=== PATIENT | female | born 1985 | race Caucasian/White ===

== ENCOUNTER 2019-08-03 10:11 | Emergency (ER) | payer OTHER, SELFPAY ==
[2019-08-03] VITALS (24 sets, daily range): BP systolic 112–140; BP diastolic 72–96; PULSE 70; RESP 18; TEMP 36.8; O2SAT 85–100
--- NOTE | 2019-08-03 11:57 | ED.BACK ---
HPI - Back Pain/Injury General Chief Complaint: Back Pain/Injury Stated Complaint: back/neck pain Time Seen by Provider: 08/03/19 11:07 Source: patient Mode of arrival: ambulatory Limitations: no limitations History of Present Illness HPI Narrative: This is a 34 year old female that presents to the ER for low back pain that started with morning. Reports no known injury or trauma. Reports the pain goes from the left side of her neck all the way down her back. Reports she took Ibuprofen with little relief. Denies fever, abdominal pain, dysuria, hematuria, weakness, numbness, saddle anesthesia, or bowel/bladder incontinence. Related Data Allergies Allergy/AdvReac Type Severity Reaction Status Date / Time amoxicillin Allergy Unknown Verified 11/13/16 23:47 codeine Allergy Unknown Verified 11/13/16 23:47 ibuprofen Allergy Unknown Verified 11/13/16 23:47 ketorolac Allergy Unknown Verified 11/13/16 23:47 latex Allergy Unknown Verified 11/13/16 23:47 naproxen Allergy Unknown Verified 11/13/16 23:47 NSAIDS (Non-Steroidal Allergy Unknown Verified 11/13/16 23:47 Anti-Inflamma tramadol Allergy Unknown Verified 11/13/16 23:47 Review of Systems Review of Systems: Narrative: CONSTITUTIONAL: Denies fever GASTROINTESTINAL: Denies abdominal pain, nausea, vomiting GENITOURINARY: Denies dysuria or hematuria. SKIN: Denies rash MUSCULOSKELETAL: Reports back pain, joint pain, and myalgia. NEUROLOGIC: Denies numbness, or weakness. PSYCHIATRIC: Reports depression. All systems reviewed & are unremarkable except as noted in HPI and below PMFSH Past Medical History Medical History (Updated 08/03/19 @ 13:52 by Sudha Nobles PA-C) History of depression Social History Social History (Updated 08/03/19 @ 11:58 by Sudha Nobles PA-C) Smoking status: Current every day smoker Substance use: never Gender identity (if verbalized by the patient): Female Exam Narrative: Exam Narrative: GENERAL: Well-appearing, well-nourished, and in no acute distress. HEAD: Normocephalic, atraumatic. EYES: EOMI. NECK: Supple. No adenopathy or masses. No midline spinal tenderness CHEST: Clear to auscultation. No respiratory distress. No wheezes rales or rhonchi HEART: Regular rate and rhythm. No murmur heard. Normal peripheral pulses. BACK: No midline spinal tenderness. Tender palpation of the left sided paraspinal musculature EXTREMITIES: Normal range of motion. No edema. Strength equal in bilateral upper and lower extremities SKIN: Warm, dry, no rash. NEURO: No focal deficits. Alert and oriented x3. Normal gait PSYCH: Normal mood and affect Course Vital Signs Vital signs: Vital Signs Temperature 98.3 F 08/03/19 10:20 Pulse Rate 70 08/03/19 10:20 Respiratory Rate 18 08/03/19 10:20 Blood Pressure 136/96 H 08/03/19 10:20 Pulse Oximetry 100 08/03/19 10:20 Temperature 98.3 F 08/03/19 10:20 Pulse Rate 70 08/03/19 10:20 Respiratory Rate 18 08/03/19 10:20 Blood Pressure 126/72 08/03/19 13:31 Pulse Oximetry 97 08/03/19 13:31 MDM - Back Pain/Injury MDM Narrative Medical decision making narrative: Patient presents the emergency department for left-sided neck and back pain since this morning. No known injury or trauma. Patient's vitals are normal. She is afebrile and nontoxic-appearing. She is neurologically intact. Patient reports improvement with Tylenol and muscle relaxer. She was instructed to rest, use ice/heat and take [id number] medication as needed. She will be given muscle relaxer as needed for pain as well. She is to follow-up with primary care doctor. She is given warnings to return to the ER Lab Data Attestation: I reviewed the patient's lab results. Labs: UCG Bedside Result Negative Reference Range: Negative Critical Care Time Critical Care Time Critical Care Time: No Discharge Plan Discharge Clinical Impression: Acute neck pain Back pain Qu
[2019-08-03] MEDS: ACETAMINOPHEN 500 MG TABLET 1000 MG PO (12:07)
[2019-08-03] MEDS: DIAZEPAM 5 MG TABLET PO (12:07)
== END 2019-08-03 14:00 | disposition home or self-care (01) ==
PROVIDERS: Emergency Provider Emergency Medicine; PCP Family Medicine
DX: M54.5 Low back pain (principal); M54.2 Cervicalgia; F17.200 Nicotine dependence, unspecified, uncomplicated
CPT/HCPCS: 81025; 99283; A9270

== ENCOUNTER 2020-09-06 04:23 | Emergency (ER) | payer SELFPAY ==
--- NOTE | ~2020-09-06 | XR_ITS ---
XR chest 2V DATE: 09/06/2020 05:06 INDICATION: Cough, fever TECHNIQUE: PA and lateral views COMPARISON: None FINDINGS: There are bilateral central lung infiltrates in batwing distribution which may be consisten t with pulmonary edema versus bilateral pneumonia. Heart size is normal. No pleural effusion or pulmonary vascular congestion or pneumothorax is evident . No hilar or mediastinal enlargement. Surgical clips, right upper quadrant, consistent with cholecystectomy IMPRESSION: Bilateral central pulmonary infiltrates; consider pulmonary edema versus bilateral pneumo yony Status post cholecystectomy Reviewed, dictated and finalized at location A. IMPRESSION: Bilateral central pulmonary infiltrates; consider pulmonary edema v ersus bilateral pneumonia Status post cholecystectomy
[2020-09-06 04:36] VITALS: BP 129/82; PULSE 100; RESP 18; TEMP 37.3; O2SAT 95
--- NOTE | 2020-09-06 05:29 | ED.URI ---
HPI - URI/Sore Throat General Chief Complaint: Upper Respiratory Infection Stated Complaint: headache, sore throat Source: patient Mode of arrival: ambulatory Limitations: no limitations History of Present Illness HPI Narrative: Patient comes in with cough, subjective fever at home, sore throat, and ear pain bilaterally. This has gone on for two days. Sore throat and ear pain has been moderately severe, and sharp for the last two days. No chills, no objective fever by using thermometer. MD elicited complaint: fever, cough and sore throat Onset (ago): day(s) Consistency: constant Severity: moderate Able to tolerate fluids by mouth: Yes Exacerbating factors: swallowing Relieving factors: nothing Context: recent travel Associated symptoms: denies other symptoms Treatments prior to arrival: acetaminophen Related Data Home Medications Medication Instructions Recorded Confirmed alprazolam 1 mg PO BID 09/06/20 09/06/20 amitriptyline 10 mg PO HS 09/06/20 09/06/20 Allergies Allergy/AdvReac Type Severity Reaction Status Date / Time codeine Allergy Unknown Unknown Verified 09/06/20 06:33 ibuprofen Allergy Unknown Unknown Verified 09/06/20 06:33 ketorolac Allergy Unknown Unknown Verified 09/06/20 06:33 latex Allergy Unknown Unknown Verified 09/06/20 06:33 naproxen Allergy Unknown Unknown Verified 09/06/20 06:33 NSAIDS (Non-Steroidal Allergy Unknown Unknown Verified 09/06/20 06:33 Anti-Inflamma tramadol Allergy Unknown Unknown Verified 09/06/20 06:33 Review of Systems Constitutional: Constitutional: Reports fatigue Eyes: Eyes: Reports no additional eye complaints ENT: Reports system reviewed and no additional complaints, except as documented Cardiovascular: Cardiovascular: Reports no additional cardiovascular complaints Respiratory: Respiratory: Reports no additional respiratory complaints Gastrointestinal: Gastrointestinal: Reports no additional gastrointestinal complaints Genitourinary: Genitourinary: Reports no additional female genitourinary complaints Musculoskeletal: Musculoskeletal: Reports no additional musculoskeletal complaints Integumentary/Breasts: Skin/Breast: Reports system reviewed and no additional complaints, except as docu Neurologic: Reports system reviewed and no additional complaints, except as documented Psychiatric: Psychiatric: Reports no additional psychiatric complaints Endocrine: Endocrine: Reports no additional endocrine complaints Hematologic/Lymphatic: Hematologic/Lymphatic: Reports no additional hematologic/lymphatic complaints Allergic/Immunologic: Allergic/Immunologic: Reports no additional allergic/immunologic complaints [facility] Past Medical History Medical History (Updated 09/06/20 @ 06:29 by Yordy Ortiz MD) Colitis History of depression Migraine Surgical History Surgical History (Updated 09/06/20 @ 05:49 by Yordy Ortiz MD) History of cholecystectomy Hx of knee surgery Family History Family History (Updated 09/06/20 @ 05:50 by Yordy Ortiz MD) Mother Hypertension Heart disease Social History Social History (Updated 09/06/20 @ 05:51 by Yordy Ortiz MD) Smoking packs per day: 0.5 Smoking cigarettes per day: 10.0 Smoking status: Current every day smoker Tobacco type: cigarettes Alcohol intake: never Substance use: never Living arrangements: with family Gender identity (if verbalized by the patient): Female Exam Const: General: no acute distress and alert Orientation/consciousness: patient oriented x3 HENMT: Head: normal to inspection Ears: external ears normal General nose exam: Normal external nose present Mouth: Yes Abnormal oral and palatal mucosa present Other: erythema of throat, no exudates seen I cannot see either drum, both ears occluded with wax Eyes: Conjunctivae: conjunctivae normal Neck: Neck: normal visual inspection Chest: Chest palpation & inspection: normal inspection of the chest Resp:
[2020-09-06 05:46] LABS: Add Urine Microscopic? YES; Appearance Urine Clear (Clear); Bilirubin Urine Negative (Negative); Blood Urine Trace-Intact (Negative); Color Urine Yellow (Yellow); Glucose Urine UA Negative (Negative); Ketones Urine Negative (Negative); Leukocyte Esterase Ur Negative LEU/UL (Negative); Nitrate Urine Negative (Negative); Protein Urine Negative (Negative); Specific Grav Ur >= 1.030 (1.010-1.020); Urobilinogen Urine 0.2 mg/dL (0.2-1.0)
[2020-09-06 05:47] LABS: Bacteria Urine Trace /hpf; RBC Urine 0-2 /hpf (0-2); Squamous Epithelial Cell Urine Few /hpf (Few); WBC Urine 0-3 /hpf (0-3)
[2020-09-06 06:10] LABS: Basophils Absolute Auto 0.03 K/mm3 (0.00-0.10); Basophils Percent Auto 0.2 % (0.0-1.0); Eosinophils Absolute Auto 0.29 K/mm3 (0.02-0.50); Eosinophils Percent Auto 2.3 % (1.0-6.0); Hematocrit 40.2 % (35.0-49.0); Hemoglobin 13.7 g/dL (12.0-15.0); Immature Granulocyte Absolute 0.07 K/mm3 (0.00-0.00); Immature Granulocyte Percent A 0.5 % (0.0-0.0); Lymphocytes Percent Auto 14.1 % (18.0-42.0); Mean Corpuscular HGB Conc 34.1 g/dL (32.0-36.0); Mean Corpuscular Hemoglobin 31.3 pg (27.0-31.0); Mean Corpuscular Volume 91.8 fL (78.0-102.0); Mean Platelet Volume 9.6 fl (9.2-11.8); Monocytes Absolute Auto 0.71 K/mm3 (0.10-0.90); Monocytes Percent Auto 5.5 % (2.0-11.0); Neutrophils Absolute Auto 9.9 K/mm3 (1.7-7.2); Neutrophils Percent Auto 77.4 % (50.0-70.0); Platelet Count Result 343 K/mm3 (150-420); Red Blood Count 4.38 M/mm3 (4.20-5.40); Red Cell Distribution Width 12.4 % (11.6-14.4); White Blood Count 12.8 K/mm3 (4.8-10.8)
[2020-09-06 06:23] LABS: Alanine Aminotransferase 24 U/L (14-59); Albumin Level 3.6 g/dL (3.4-5.0); Alkaline Phosphatase 97 U/L (46-116); Anion Gap 12 mmol/L (8-16); Aspartate Amino Transferase 11 U/L (15-37); Bilirubin,Total 0.6 mg/dL (0.00-1.00); Blood Urea Nitrogen 9 mg/dL (7-18); Calcium 8.8 mg/dL (8.5-10.1); Carbon Dioxide 24 mmol/L (21-32); Chloride 102 mmol/L (98-108); Estimated CRCL calculation 83 ml/min; Estimated Glomerular Filt Rate > 60; Glucose 105 mg/dL (70-99); Osmolality Calculated 284 mOsm/kg (285-295); Potassium 3.5 mmol/L (3.5-5.1); Sodium 138 mmol/L (136-145); Total Protein 6.8 g/dL (6.4-8.2)
[2020-09-06] MEDS: HYDROcodone/acetaminophen (*CRX) 5-325 MG TABLET 1 TAB PO (06:28)
[2020-09-06 06:30] VITALS: BP 126/78; PULSE 100; RESP 20; TEMP 37.2; O2SAT 97
== END 2020-09-06 06:43 | disposition home or self-care (01) ==
PROVIDERS: Emergency Provider Emergency Medicine; PCP Family Medicine
DX: B34.9 Viral infection, unspecified (principal)
CPT/HCPCS: 36415; 71046; 80053; 81001; 85025; 87040; 87081; 87880; 99283; A9270

== ENCOUNTER 2021-09-20 17:25 | Emergency (ER) | payer OTHER, SELFPAY ==
[2021-09-20 17:30] VITALS: BP 153/87; PULSE 88; RESP 20; TEMP 37; O2SAT 96
--- NOTE | 2021-09-20 17:53 | ED.ALLEREA ---
HPI - Allergic Reaction General Chief complaint: Allergic Reaction Stated complaint: food allergy Time Seen by Provider: 09/20/21 17:29 Source: patient and RN notes reviewed Mode of arrival: ambulatory Limitations: no limitations History of Present Illness complaint: allergic reaction Onset (ago): day(s) (3) Exposure: unknown Symptoms: rash and itching Severity: mild Treatment prior to arrival: benadryl Related Data Home Medications Medication Instructions Recorded Confirmed alprazolam 1 mg tablet 1 mg PO BID 09/06/20 09/20/21 Allergies Allergy/AdvReac Type Severity Reaction Status Date / Time codeine Allergy Unknown Unknown Verified 09/06/20 06:33 ibuprofen Allergy Unknown Unknown Verified 09/06/20 06:33 ketorolac Allergy Unknown Unknown Verified 09/06/20 06:33 latex Allergy Unknown Unknown Verified 09/06/20 06:33 naproxen Allergy Unknown Unknown Verified 09/06/20 06:33 NSAIDS (Non-Steroidal Allergy Unknown Unknown Verified 09/06/20 06:33 Anti-Inflamma tramadol Allergy Unknown Unknown Verified 09/06/20 06:33 Review of Systems Review of Systems: All systems reviewed & are unremarkable except as noted in HPI and below Constitutional: Constitutional: Reports no additional constitutional complaints Eyes: Eyes: Reports no additional eye complaints ENT: Reports system reviewed and no additional complaints, except as documented Cardiovascular: Cardiovascular: Reports no additional cardiovascular complaints Respiratory: Respiratory: Reports no additional respiratory complaints Gastrointestinal: Gastrointestinal: Reports no additional gastrointestinal complaints Genitourinary: Genitourinary: Reports no additional female genitourinary complaints Musculoskeletal: Musculoskeletal: Reports no additional musculoskeletal complaints Integumentary/Breasts: Skin/Breast: Reports system reviewed and no additional complaints, except as docu Neurologic: Reports system reviewed and no additional complaints, except as documented Psychiatric: Psychiatric: Reports no additional psychiatric complaints Endocrine: Endocrine: Reports no additional endocrine complaints Hematologic/Lymphatic: Hematologic/Lymphatic: Reports no additional hematologic/lymphatic complaints Allergic/Immunologic: Allergic/Immunologic: Reports no additional allergic/immunologic complaints [facility] Past Medical History Medical History (Updated 09/20/21 @ 18:05 by Yady Coronado MD) Allergic reaction Colitis History of depression Migraine Surgical History Surgical History (Updated 09/06/20 @ 05:49 by Yordy Ortiz MD) History of cholecystectomy Hx of knee surgery Family History Family History (Updated 09/06/20 @ 05:50 by Yordy Ortiz MD) Mother Hypertension Heart disease Social History Social History (Updated 09/06/20 @ 05:51 by Yordy Ortiz MD) Smoking packs per day: 0.5 Smoking cigarettes per day: 10.0 Smoking status: Current every day smoker Tobacco type: cigarettes Alcohol intake: never Substance use: never Gender identity (if verbalized by the patient): Female Exam Const: General: healthy appearing and no acute distress Nutritional Appearance: well nourished Orientation/consciousness: patient oriented x3 Limitations: no limitations HENMT: Head: normal to inspection Ears: external ears normal, TM's normal bilaterally and EAC's normal General nose exam: Normal external nose present and Normal nares present Face and sinus: normal facial exam and sinuses nontender Mouth: Yes Normal oral and palatal mucosa present and Yes moist mucous membranes Teeth and gingiva: dentition normal Throat: posterior oropharynx normal Eyes: Conjunctivae: conjunctivae normal Pupils: Equal, round and reactive pupils present EOM: EOMs intact bilaterally Neck: Neck: normal visual inspection, no lymphadenopathy and no meningeal signs Chest: Chest palpation & inspection: normal inspection of the chest Resp: Effort
[2021-09-20] MEDS: methylPREDNISolone SOD SUCC 125 MG VIAL IM (18:00)
[2021-09-20 18:01] VITALS: BP 130/84; PULSE 89; RESP 20; TEMP 37; O2SAT 98
== END 2021-09-20 18:20 | disposition home or self-care (01) ==
PROVIDERS: Emergency Provider Emergency Medicine
DX: L50.9 Urticaria, unspecified (principal); T78.40XA Allergy, unspecified, initial encounter
CPT/HCPCS: 96372; 99283; J2930

== ENCOUNTER 2021-09-23 13:23 | Emergency (ER) | payer OTHER, SELFPAY ==
[2021-09-23 13:30] VITALS: BP 130/80; PULSE 78; RESP 14; TEMP 36.2; O2SAT 98
--- NOTE | 2021-09-23 13:37 | ED.SKABFB ---
HPI - Skin/Abscess/Foreign Bdy General Chief complaint: Skin/Abscess/Foreign Body Stated complaint: rash on neck and extremities Time Seen by Provider: 09/23/21 13:37 Source: patient Mode of arrival: ambulatory Limitations: no limitations History of Present Illness HPI narrative: 36 year presented to the 09/2021 with urticaria and was treated with Medrol Dosepak. She presents today with generalized urticarial lesions over upper and lower extremities. Her lesions are restricted to exposed areas. She does not have any rash on the front or back of her chest. No mucosal lesions. The lesions are painful and very itchy. No throat tightness, tongue swelling, shortness of breath or abdominal pain. The patient has not had any new medication nor has she been anything new. She also complains of tightness of her joints especially those involved with the rash MD complaint: rash Onset (ago): day(s) ( she has had it for the past 6 days) Tetanus up to date: yes Location: LUE, RUE, LLE and RLE Severity: moderate Quality: aching and pruritic Relieving factors: none Exacerbating factors: none Context: none Associated symptoms: denies other symptoms Related Data Home Medications Medication Instructions Recorded Confirmed alprazolam 1 mg tablet 1 mg PO BID 09/06/20 09/23/21 Allergies Allergy/AdvReac Type Severity Reaction Status Date / Time codeine Allergy Unknown Unknown Verified 09/23/21 13:41 ibuprofen Allergy Unknown Unknown Verified 09/23/21 13:41 ketorolac Allergy Unknown Unknown Verified 09/23/21 13:41 latex Allergy Unknown Unknown Verified 09/23/21 13:41 naproxen Allergy Unknown Unknown Verified 09/23/21 13:41 NSAIDS (Non-Steroidal Allergy Unknown Unknown Verified 09/23/21 13:41 Anti-Inflamma tramadol Allergy Unknown Unknown Verified 09/23/21 13:41 Review of Systems Review of Systems: All systems reviewed & are unremarkable except as noted in HPI and below Constitutional: Constitutional: Reports as per HPI and Reports no additional constitutional complaints Eyes: Eyes: Reports as per HPI and Reports no additional eye complaints ENT: Reports system reviewed and no additional complaints, except as documented and Reports as per HPI Cardiovascular: Cardiovascular: Reports as per HPI and Reports no additional cardiovascular complaints Respiratory: Respiratory: Reports as per HPI and Reports no additional respiratory complaints Gastrointestinal: Gastrointestinal: Reports as per HPI and Reports no additional gastrointestinal complaints Genitourinary: Genitourinary: Reports no additional female genitourinary complaints and Reports as per HPI Integumentary/Breasts: Skin/Breast: Reports system reviewed and no additional complaints, except as docu, Reports as per HPI and Reports rash Comments: generalized urticarial rash over extensor surface of extremities Neurologic: Reports system reviewed and no additional complaints, except as documented and Reports as per HPI Psychiatric: Psychiatric: Reports no additional psychiatric complaints and Reports as per HPI Endocrine: Endocrine: Reports no additional endocrine complaints and Reports as per HPI Hematologic/Lymphatic: Hematologic/Lymphatic: Reports no additional hematologic/lymphatic complaints and Reports as per HPI Allergic/Immunologic: Allergic/Immunologic: Reports no additional allergic/immunologic complaints and Reports as per HPI PMFSH Past Medical History Medical History Allergic reaction Colitis History of depression Migraine Surgical History Surgical History History of cholecystectomy Hx of knee surgery Family History Family History Mother Hypertension Heart disease Social History Social History Smoking packs per day:
[2021-09-23 14:09] LABS: Basophils Absolute Auto 0.05 K/mm3 (0.00-0.10); Basophils Percent Auto 0.5 % (0.0-1.0); Eosinophils Absolute Auto 0.89 K/mm3 (0.02-0.50); Eosinophils Percent Auto 8.1 % (1.0-6.0); Hematocrit 40.2 % (35.0-49.0); Hemoglobin 13.6 g/dL (12.0-15.0); Immature Granulocyte Absolute 0.05 K/mm3 (0.00-0.00); Immature Granulocyte Percent A 0.5 % (0.0-0.0); Lymphocytes Absolute Auto 2.94 K/mm3 (1.10-4.50); Lymphocytes Percent Auto 26.8 % (18.0-42.0); Mean Corpuscular HGB Conc 33.8 g/dL (32.0-36.0); Mean Corpuscular Hemoglobin 31.3 pg (27.0-31.0); Mean Corpuscular Volume 92.6 fL (78.0-102.0); Mean Platelet Volume 9.6 fl (9.2-11.8); Monocytes Absolute Auto 0.57 K/mm3 (0.10-0.90); Monocytes Percent Auto 5.2 % (2.0-11.0); Neutrophils Absolute Auto 6.5 K/mm3 (1.7-7.2); Neutrophils Percent Auto 58.9 % (50.0-70.0); Platelet Count Result 333 K/mm3 (150-420); Red Blood Count 4.34 M/mm3 (4.20-5.40); Red Cell Distribution Width 12.3 % (11.6-14.4)
[2021-09-23] MEDS: methylPREDNISolone SOD SUCC 125 MG VIAL IM (14:15)
[2021-09-23 14:22] LABS: INR 0.9; Prothrombin Time 10.3 Seconds (9.50-12.10)
[2021-09-23 14:27] LABS: CRP < 0.2 mg/dL (0.0-0.9)
[2021-09-23 14:30] LABS: Lactic Acid Reflex 1.6 mmol/L (0.4-2.0)
[2021-09-23 14:36] LABS: Alanine Aminotransferase 18 U/L (14-59); Albumin Level 3.3 g/dL (3.4-5.0); Alkaline Phosphatase 87 U/L (46-116); Anion Gap 8 mmol/L (8-16); Aspartate Amino Transferase < 10 U/L (15-37); Bilirubin,Total 0.3 mg/dL (0.00-1.00); Blood Urea Nitrogen 13 mg/dL (7-18); Calcium 8.6 mg/dL (8.5-10.1); Carbon Dioxide 26 mmol/L (21-32); Chloride 106 mmol/L (98-108); Estimated CRCL calculation 72 ml/min; Estimated Glomerular Filt Rate 55; Glucose 123 mg/dL (70-99); Osmolality Calculated 291 mOsm/kg (285-295); Potassium 3.1 mmol/L (3.5-5.1); Sodium 140 mmol/L (136-145); Total Protein 6.1 g/dL (6.4-8.2)
[2021-09-23 14:43] LABS: Thyroid Stimulating Hormone 0.74 uIU/mL (0.36-3.74)
[2021-09-23 15:45] VITALS: BP 128/88; PULSE 80; RESP 18; O2SAT 99
[2021-09-23] MEDS: POTASSIUM CHLORIDE 20 MEQ TABLET 40 MEQ PO (15:49)
== END 2021-09-23 15:45 | disposition home or self-care (01) ==
PROVIDERS: Emergency Provider Internal Medicine Critical Care Medicine; PCP Family Medicine
DX: L50.9 Urticaria, unspecified (principal)
CPT/HCPCS: 36415; 80053; 83605; 84443; 85025; 85610; 86140; 96372; 99283; A9270; J2930

== ENCOUNTER 2022-05-18 21:10 | Emergency (ER) | payer OTHER, SELFPAY ==
[2022-05-18 21:15] VITALS: BP 134/88; PULSE 105; RESP 12; TEMP 36.7; O2SAT 98
[2022-05-18] MEDS: LIDOCAINE HCL 1% LOCAL INJ 10 ML VIAL 3 ML INFILTRATE (22:48)
--- NOTE | 2022-05-18 22:57 | ED.GENADULT ---
HPI - General Adult General Chief complaint: Unspecified Stated complaint: lower extremity injury History of Present Illness HPI narrative: 37-YEAR-OLD WHITE FEMALE CUT HER LEFT INDEX FINGER WITH A KNIFE AT 2:00 A.M. TODAY. CONTINUES TO BLEED. SHE IS UP-TO-DATE ON HER TETANUS DENIES ANY NUMBNESS OR TINGLING OR LOSS OF FUNCTION. CUT IT WITH A KNIFE AT HOME DISTAL PHALANX VOLAR SURFACE. FLAP LACERATION DENIES ANY OTHER . Related Data Home Medications Medication Instructions Recorded Confirmed alprazolam 1 mg tablet 1 mg PO TID 09/06/20 05/18/22 topiramate 25 mg tablet 25 mg DAILY 05/18/22 05/18/22 Allergies Allergy/AdvReac Type Severity Reaction Status Date / Time codeine Allergy Unknown Unknown Verified 05/18/22 22:18 ibuprofen Allergy Unknown Unknown Verified 05/18/22 22:18 ketorolac Allergy Unknown Unknown Verified 05/18/22 22:18 latex Allergy Unknown Unknown Verified 05/18/22 22:18 naproxen Allergy Unknown Unknown Verified 05/18/22 22:18 NSAIDS (Non-Steroidal Allergy Unknown Unknown Verified 05/18/22 22:18 Anti-Inflamma tramadol Allergy Unknown Unknown Verified 05/18/22 22:18 Review of Systems Constitutional: Constitutional: Reports no additional constitutional complaints Eyes: Eyes: Reports no additional eye complaints ENT: Reports system reviewed and no additional complaints, except as documented Cardiovascular: Cardiovascular: Reports no additional cardiovascular complaints Respiratory: Respiratory: Reports no additional respiratory complaints Gastrointestinal: Gastrointestinal: Reports no additional gastrointestinal complaints Genitourinary: Genitourinary: Reports no additional female genitourinary complaints Musculoskeletal: Musculoskeletal: Reports no additional musculoskeletal complaints Integumentary/Breasts: Skin/Breast: Reports as per HPI Neurologic: Reports system reviewed and no additional complaints, except as documented and Reports as per HPI [facility] Past Medical History Medical History Allergic reaction Colitis History of depression Migraine Surgical History Surgical History History of cholecystectomy Hx of knee surgery Family History Family History Mother Hypertension Heart disease Social History Social History Smoking packs per day: 0.5 Smoking cigarettes per day: 10.0 Smoking status: Current every day smoker Tobacco type: cigarettes Alcohol intake: never Substance use: never Living arrangements: with family Gender identity (if verbalized by the patient): Female Exam Narrative: WHITE FEMALE IN NO APPARENT DISTRESS LEFT WRIST NONTENDER FULL RANGE OF MOTION LEFT HAND NONTENDER WITH THE EXCEPTION OF HER LEFT INDEX FINGER VOLAR SURFACE HAS A FLAP LACERATION 2 CM SUPERFICIAL NO ACTIVE BLEEDING NO FOREIGN BODY SEEN. FULL RANGE OF MOTION. NORMAL CAPILLARY REFILL. NORMAL SENSATION AND MOTOR STRENGTH FOR RADIAL ULNAR AND MEDIAN NERVE TESTING OF THE HAND. NO TENDON INJURY STRONG FLEXION AND EXTENSION OF HER LEFT INDEX FINGER IN ALL HER FINGERS. Course Course Emergency Course: Procedure Name: Laceration Repair Indication: Reduce risk of infection Location: ___ LACERATION LEFT DISTAL PHALANX VOLAR SURFACE INDEX FINGER Pre-Procedure Diagnosis: Laceration Post-Procedure Diagnosis: Repaired Laceration Informed consent was obtained before procedure started. PROCEDURE: The appropriate timeout was taken. The area was prepped and draped in the usual sterile fashion. DIGITAL BLOCK anesthesia was achieved using 3cc of ?Lidocaine 1% without epinephrine. The wound was copiously irrigated. WITH TAP WATER 4-0 Nylon interrupted sutures were placed. X3 Estimated blood loss was less than 0.5 mL. BAND-AID was applied to the
[2022-05-18 23:06] VITALS: BP 140/86; PULSE 81; RESP 18; O2SAT 97
[2022-05-18] MEDS: AMOXICILLIN/CLAVULANATE K 875-125 MG TAB 1 TABLET PO (23:18)
== END 2022-05-18 23:20 | disposition home or self-care (01) ==
PROVIDERS: Emergency Provider Emergency Medicine; PCP Family Medicine
DX: S61.211A Laceration without foreign body of left index finger without damage to nail, initial encounter (principal); F17.210 Nicotine dependence, cigarettes, uncomplicated; W26.0XXA Contact with knife, initial encounter; Y92.009 Unspecified place in unspecified non-institutional (private) residence as the place of occurrence of the external cause
CPT/HCPCS: 12001; 99283; A9270